=== PATIENT | female | born 1995 | race African-American/Black ===

== ENCOUNTER 2023-11-04 23:10 | Inpatient (IN) | payer OTHER ==
[2023-11-05] MEDS: LACTATED RINGERS SOLUTION 1,000 ML IV ONE (02:00)
[2023-11-05] MEDS: LACTATED RINGERS SOLUTION 1,000 ML/1,000 ML INFUS.BAG IV SCH (03:30)
[2023-11-05] MEDS ORDERED: PROMETHAZINE HCL 25 MG/1 ML VIAL IVPB PRN (03:33)
[2023-11-05] MEDS ORDERED: BUTORPHANOL TARTRATE 1 MG/ML VIAL IVPB PRN (03:33)
[2023-11-05 04:24] VITALS: BMI 26.6
[2023-11-05 04:33] LABS: BASO % 0.3 % (0-2.0); EOS % 1.3 % (0-4.5); HEMOGLOBIN 11.5 GM/dL (10.7-15.3); LYMPH % 22.3 % (8-40); MEAN CELL VOLUME 91.3 fl (80-96); MEAN PLT VOLUME 10.9 fl (7.5-11.1); MONO % 5.5 % (3.8-10.2); NEUT % 70.6 % (42.8-82.8); PLATELET COUNT 145 10^3/uL (134-434); RBC 3.61 M/mm3 (3.60-5.2); RDW 13.2 % (11.6-15.6); WHITE BLOOD COUNT 6.4 K/mm3 (4.0-10.0)
[2023-11-05 04:54] LABS: POTASSIUM 4.2 mmol/L (3.5-5.1)
[2023-11-05 04:55] LABS: CALCIUM 9.2 mg/dL (8.5-10.1)
[2023-11-05 04:59] LABS: CREATININE 0.6 mg/dL (0.55-1.3); INR 0.85 (0.83-1.09); PROTHROMBIN TIME (PATIENT) 9.9 SEC (9.7-13.0)
[2023-11-05 05:02] LABS: ACTIVATED PTT 28.2 SECONDS (25.2-36.5)
[2023-11-05] MEDS ORDERED: FENTANYL/BUPIVACAINE/NS/PF - PCEA - 50 ML DISP.SYRIN EP ONE ×3 (05:29→14:25)
[2023-11-05] MEDS ORDERED: BUPIVACAINE HCL/PF 0.25% (2.5MG/ML) 10 ML VIAL ONE ×2 (05:45→13:51)
[2023-11-05] MEDS ORDERED: LIDO 2%/EPI 1:200000 PRESRVFRE (20 ML SDVIAL) ONE (05:45)
[2023-11-05 05:53] LABS: HIV INTERPRETATION NEGATIVE (NEGATIVE)
[2023-11-05] MEDS: FENTANYL/BUPIVACAINE/NS/PF - PCEA - 50 ML DISP.SYRIN EP SCH (06:00)
[2023-11-05] MEDS ORDERED: NALOXONE HCL 0.4 MG/ML VIAL IVPUSH PRN (06:13)
[2023-11-05] MEDS ORDERED: OXYTOCIN 20 UNITS in 0.9% NS 20 UNIT/1,000 ML INFUS.BAG IV ONE (13:09)
[2023-11-05 17:03] LABS: CORD HCO3 18.2 mmHg (20-29); CORD PCO2 36.2 mmHg (30-78); CORD pH 7.319 (7.14-7.44)
[2023-11-05] MEDS ORDERED: oxyCODONE HCL 5 MG TABLET PO PRN (17:33)
[2023-11-05] MEDS ORDERED: METHYLERGONOVINE MALEATE 0.2 MG/1 ML AMP IM PRN (17:33)
[2023-11-05] MEDS ORDERED: BISACODYL 10 MG SUPP.RECT RC PRN (17:33)
[2023-11-05 17:48] VITALS: RESP 18
[2023-11-05] MEDS: OXYTOCIN 20 UNITS in 0.9% NS 20 UNIT/1,000 ML INFUS.BAG IV SCH (20:11)
[2023-11-05] MEDS: WITCH HAZEL 50% (TUCKS) 40 PAD/JAR PAD TP PRN (20:37)
[2023-11-05] MEDS: BENZOCAINE 20% 57 GM BOTTLE TP PRN (20:37)
[2023-11-05] MEDS: BENZOCAINE 28 GM HEMORRHOIDAL OINTMENT TP PRN (20:37)
[2023-11-06] MEDS: FERROUS SO4 325 MG TABLET (FP) PO SCH (07:04)
[2023-11-06] MEDS: IBUPROFEN 600 MG TABLET (FP) PO PRN (07:04)
[2023-11-06 08:21] LABS: BASO % 0.3 % (0-2.0); EOS % 0.2 % (0-4.5); HEMATOCRIT 25.7 % (32.4-45.2); HEMOGLOBIN 8.7 GM/dL (10.7-15.3); LYMPH % 9.8 % (8-40); MCH 31.2 pg (25.7-33.7); MCHC 33.8 g/dl (32.0-36.0); MEAN CELL VOLUME 92.4 fl (80-96); MEAN PLT VOLUME 9.8 fl (7.5-11.1); MONO % 4.5 % (3.8-10.2); NEUT % 85.2 % (42.8-82.8); PLATELET COUNT 126 10^3/uL (134-434); RBC 2.78 M/mm3 (3.60-5.2); RDW 13.5 % (11.6-15.6); WHITE BLOOD COUNT 12.3 K/mm3 (4.0-10.0)
[2023-11-06] MEDS: ACETAMINOPHEN 325 MG TABLET (FP) PO PRN (10:59)
[2023-11-06] MEDS: PRENATAL VITAMINS W/ FOLIC ACID TABLET (FP) PO SCH (10:59)
[2023-11-06] MEDS: DIPHTH,PERTUSS(ACELL),TET 0.5 ML DISP.SYRIN IM ONE (13:51)
[2023-11-06] MEDS ORDERED: SENNOSIDES/DOCUSATE COMBO (SENNA PLUS) TABLET (UD) PO PRN (22:00)
[2023-11-07 10:01] VITALS: BP 117/80; PULSE 90; TEMP 98.2
== END 2023-11-07 13:30 | disposition home or self-care (01) | DRG 560 ==
LOC: JDEL 23:10 → JLDR 11-05 03:30 → J3W 11-05 19:26
PROVIDERS: ADMIT Obstetrics & Gynecology; ATTEND Obstetrics & Gynecology
PROC: 10E0XZZ Delivery of Products of Conception, External Approach (ICD-10-PCS; principal; 2023-11-05)
PROC: 0HQ9XZZ Repair Perineum Skin, External Approach (ICD-10-PCS; 2023-11-05)
DX: O70.0 First degree perineal laceration during delivery (principal); Z3A.39 39 weeks gestation of pregnancy; Z37.0 Single live birth
CPT/HCPCS: 36415; 36600; 76819-TC; 80048; 82803; 85025; 85610; 85730; 86780; 86850; 86900; 86901; 87389; 90715

== ENCOUNTER 2024-04-20 20:16 | Emergency (ER) | payer OTHER ==
[2024-04-20 20:36] VITALS: BP 115/77; PULSE 72; RESP 20; TEMP 98.6; BMI 23.1
[2024-04-20] MEDS ORDERED: KETOROLAC TROMETHAMINE 30 MG/1 ML VIAL ONE (21:52)
[2024-04-20] MEDS: KETOROLAC TROMETHAMINE 30 MG/1 ML VIAL IM ONE (21:57)
== END 2024-04-20 23:13 | disposition home or self-care (01) ==
LOC: JERFT 20:16
PROC: 3E0133Z Introduction of Anti-inflammatory into Subcutaneous Tissue, Percutaneous Approach (ICD-10-PCS; principal; 2024-04-20)
DX: M65.4 Radial styloid tenosynovitis [de Quervain] (principal); M25.531 Pain in right wrist; M79.89 Other specified soft tissue disorders
CPT/HCPCS: 99284-25